=== PATIENT | female | born 1975 | race Caucasian/White ===

== ENCOUNTER 2018-03-31 09:35 | Emergency (ER) | payer OTHER, MEDICAID ==
[2018-03-31 11:27] LABS: URINE BLOOD (Dip) POC 1+ (NEGATIVE); URINE GLUCOSE (Dip) POC Negative (NEGATIVE); URINE KETONES (Dip) POC Negative (NEGATIVE); URINE LEUKOCYTE EST (Dip) POC Trace (NEGATIVE); URINE NITRITE (Dip) POC Negative (NEGATIVE); URINE TOTAL PROTEIN POC 1+ (NEGATIVE)
== END 2018-03-31 12:53 | disposition home or self-care (01) ==
LOC: FTE 09:35
DX: M54.5 Low back pain (principal); E66.01 Morbid (severe) obesity due to excess calories
CPT/HCPCS: 72100; 81003; 81025; 99283-25